=== PATIENT | male | born 1980 | race Hispanic/Latino ===

== ENCOUNTER 2018-01-07 20:44 | Emergency (ER) | payer OTHER ==
--- NOTE | 2018-01-07 22:47 | ER ---
Nurse's Notes [facility] Name: Timothy Burt Age: 37 yrs Sex: Male : 1980 Arrival Date: 01/07/2018 Time: 20:47 Bed 10 Private MD: Diagnosis: Acute bronchitis, unspecified Presentation: 01/07 20:50 Presenting complaint: Patient states: cough, cold, nausea, chills, flu sx for one week. la1 Transition of care: patient was not received from another setting of care. Onset of symptoms was January 07, 2018. Care prior to arrival: None. 20:50 Method Of Arrival: Ambulatory la1 20:50 Acuity: TG 4 la1 Triage Assessment: 23:45 Pain: Denies pain. bb Historical: - Allergies: 20:51 No Known Allergies; la1 - PMHx: 20:51 None; la1 - Immunization history:: Adult Immunizations up to date. - Social history:: Smoking status: Patient/guardian denies using tobacco. Screenin:17 Abuse screen: Denies threats or abuse. Nutritional screening: No deficits noted. bb Tuberculosis screening: No symptoms or risk factors identified. Fall Risk None identified. Assessment: 22:17 General: Appears in no apparent distress. Behavior is calm, cooperative. Neuro: Level bb of Consciousness is awake, alert, obeys commands, Oriented to person, place, time, situation. Cardiovascular: No deficits noted. Respiratory: Respiratory effort is unlabored. GI: No deficits noted. No signs and/or symptoms were reported involving the gastrointestinal system. Derm: Skin is pink, warm \T\ dry. Musculoskeletal: Circulation, motion, and sensation intact. 23:44 Reassessment: Patient is alert, oriented x 3, equal unlabored respirations, skin bb warm/dry/pink. pt verbalized understanding of and agrees to plan of care discharge instructions given pt ambulated with steady gait to exit accompanied by family Patient states feeling better. Vital Signs: 20:50 BP 117 / 72; Pulse 90; Resp 16; Temp 97.5(TE); Pulse Ox 100% on R/A; Weight 66.22 kg; la1 Height 5 ft. 7 in. (170.18 cm); 23:42 BP 108 / 59 LA Sitting (auto/reg); Pulse 75 LA; Resp 18 S; Temp 98.8(O); Pulse Ox 97% cb2 on R/A; 20:50 Body Mass Index 22.87 (66.22 kg, 170.18 cm) la1 ED Course: 20:47 Patient arrived in ED. am2 20:50 Triage completed. la1 20:51 Arm band placed on left wrist. la1 22:17 Patient has correct armband on for positive identification. bb 22:19 Zena Lopez RN is Primary Nurse. bb 22:31 Josué Garcia PA is PHCP. jr8 22:31 Daquan Baeza MD is Attending Physician. jr8 23:45 No provider procedures requiring assistance completed. Patient did not have IV access bb during this emergency room visit. Administered Medications: 23:01 Drug: Albuterol 2.5 mg Route: Inhalation; bb 23:44 Follow up: Response: Marked relief of symptoms bb 23:01 Drug: predniSONE 60 mg Route: PO; bb 23:43 Follow up: Response: No adverse reaction bb Outcome: 22:46 Discharge ordered by MD. jr8 23:45 Discharged to home ambulatory, with family. bb 23:45 Condition: stable 23:45 Discharge instructions given to patient, Instructed on discharge instructions, follow up and referral plans. medication usage, Demonstrated understanding of instructions, follow-up care, medications, Prescriptions given X 3. 23:45 Patient left the ED. bb Signatures: Zena Lopez RN RN bb Josué Garcia PA PA jr8 Shabbir Trotter RN RN la1 Bibi Fuller am2 Andrade Andrews cb2
--- NOTE | 2018-01-07 22:47 | EDPHYS ---
Physician Documentation [facility] Name: Timothy Burt Age: 37 yrs Sex: Male : 1980 Arrival Date: 01/07/2018 Time: 20:47 Bed 10 Private MD: ED Physician Daquan Baeza HPI: 01/07 22:42 This 37 yrs old Male presents to ER via Ambulatory with complaints of Flu jr8 Symptoms. 22:42 The patient or guardian reports cough, that is intermittent, described as moderate. jr8 Onset: The symptoms/episode began/occurred gradually, 1 week(s) ago. Severity of symptoms: At their worst the symptoms were moderate, in the emergency department the symptoms are unchanged. Modifying factors: The symptoms are alleviated by nothing, the symptoms are aggravated by nothing. Associated signs and symptoms: Pertinent positives: fever. The patient has not experienced similar symptoms in the past. The patient has not recently seen a physician. Patient stated that he had been doing OTC medications for flu like symptoms for over a week now. Stated that he still cannot get rid of cough, congestion . Historical: - Allergies: 20:51 No Known Allergies; la1 - PMHx: 20:51 None; la1 - Immunization history:: Adult Immunizations up to date. - Social history:: Smoking status: Patient/guardian denies using tobacco. ROS: 22:42 Eyes: Negative for injury, pain, redness, and discharge, Neck: Negative for injury, jr8 pain, and swelling, Cardiovascular: Negative for chest pain, palpitations, and edema, Abdomen/GI: Negative for abdominal pain, nausea, vomiting, diarrhea, and constipation, Back: Negative for injury and pain, MS/Extremity: Negative for injury and deformity, Skin: Negative for injury, rash, and discoloration, Neuro: Negative for headache, weakness, numbness, tingling, and seizure. 22:42 Constitutional: Positive for fever. 22:42 ENT: Positive for rhinorrhea, sinus congestion. 22:42 Respiratory: Positive for cough, with no reported sputum, shortness of breath, wheezing. Exam: 22:42 Eyes: Pupils equal round and reactive to light, extra-ocular motions intact. Lids and jr8 lashes normal. Conjunctiva and sclera are non-icteric and not injected. Cornea within normal limits. Periorbital areas with no swelling, redness, or edema. ENT: Nares patent. No nasal discharge, no septal abnormalities noted. Tympanic membranes are normal and external auditory canals are clear. Oropharynx with no redness, swelling, or masses, exudates, or evidence of obstruction, uvula midline. Mucous membranes moist. Neck: Trachea midline, no thyromegaly or masses palpated, and no cervical lymphadenopathy. Supple, full range of motion without nuchal rigidity, or vertebral point tenderness. No Meningismus. Cardiovascular: Regular rate and rhythm with a normal S1 and S2. No gallops, murmurs, or rubs. Normal PMI, no JVD. No pulse deficits. Abdomen/GI: Soft, non-tender, with normal bowel sounds. No distension or tympany. No guarding or rebound. No evidence of tenderness throughout. Back: No spinal tenderness. No costovertebral tenderness. Full range of motion. Skin: Warm, dry with normal turgor. Normal color with no rashes, no lesions, and no evidence of cellulitis. MS/ Extremity: Pulses equal, no cyanosis. Neurovascular intact. Full, normal range of motion. Neuro: Awake and alert, GCS 15, oriented to person, place, time, and situation. Cranial nerves II-XII grossly intact. Motor strength 5/5 in all extremities. Sensory grossly intact. Cerebellar exam normal. Normal gait. 22:42 Respiratory: the patient does not display signs of respiratory distress, Respirations: normal, symetrical, no use of accessory muscles, no grunting, no evidence of nasal flaring, no prolonged exhalations, no pursed lip breathing, no retractions, no shallow respirations, no splinting, no tachypnea, Breath sounds: rhonchi, that are mild, are heard diffusely, wheezing: expiratory that is mild, is heard diffusely. Vital Signs: 20:50 BP 117 / 72; Pulse 90; Resp 16; Temp 97.5(TE); Pulse Ox 100% on R/A; Weight 66.22 kg; la1 Height 5 ft. 7 in. (170.18 cm); 23:42 BP 108 / 59 LA Sitting (auto/reg); Pulse 75 LA; Resp 18 S; Temp 98.8(O); Pulse Ox 97% cb2 on R/A; 20:50 Body Mass Index 22.87 (66.22 kg, 170.18 cm) la1 MDM: 22:31 Patient medically screened. jr8 22:42 Data reviewed: vital signs, nurses notes, lab test result(s), Flu: negative and as a jr8 result, I will discharge patient. Data interpreted: Pulse oximetry: on room air is 100 %. Interpretation: normal. Counseling: I had a detailed discussion with the patient and/or guardian regarding: the historical points, exam findings, and any diagnostic results supporting the discharge/admit diagnosis, lab results, the need for outpatient follow up, a family practitioner, to return to the emergency department if symptoms worsen or persist or if there are any questions or concerns that arise at home. 01/07 20:49 Order name: Flu; Complete Time: 22:32 la1 01/07 20:49 Order name: Strep; Complete Time: 22:32 la1 01/07 21:26 Order name: Throat Culture EDMS Administered Medications: 23:01 Drug: Albuterol 2.5 mg Route: Inhalation; bb 23:44 Follow up: Response: Marked relief of symptoms bb 23:01 Drug: predniSONE 60 mg Route: PO; bb 23:43 Follow up: Response: No adverse reaction bb Disposition: 01/08 00:20 Co-signature as Attending Physician, Daquan Baeza MD. [email or web address] Disposition: 01/07/18 22:46 Discharged to Home. Impression: Acute bronchitis, unspecified. - Condition is Stable. - Discharge Instructions: Acute Bronchitis. - Prescriptions for Prednisone 20 mg Oral Tablet - take 1 tablet by ORAL route once daily for 5 days; 5 tablet. Zithromax Z- Keven 250 mg Oral Tablet - take 1 tablet by ORAL route as directed for 5 days Day 1 - take two (2) tablets one time. Day 2, 3, 4 , 5 take one (1) tablet once daily.; 6 tablet. Albuterol Sulfate 90 mcg/actuation - inhale 1-2 puff by INHALATION route every 4-6 hours; 1 Inhaler. - Medication Reconciliation Form, Thank You Letter, Antibiotic Education, Prescription Opioid Use form. - Follow up: Private Physician; When: 2 - 3 days; Reason: Recheck today's complaints, Continuance of care, Re-evaluation by your physician. - Problem is new. - Symptoms have improved. Signatures: Dispatcher [employer] EDMS Daquan Baeza MD MD pkl Zena Lopez RN RN bb Josué Garcia PA PA jr8 Shabbir Trotter, RN RN la1
[2018-01-07] MEDS ORDERED: ALBUTEROL 2.5 MG/3 ML NEB SOL ONE (23:12)
[2018-01-07] MEDS ORDERED: predniSONE 20 MG TAB ONE (23:12)
== END 2018-01-07 23:45 | disposition home or self-care (01) ==
LOC: ER 20:44
DX: J20.9 Acute bronchitis, unspecified (principal)
CPT/HCPCS: 87070; 87081; 87804; 99284; J7512